=== PATIENT | male | born 1980 | race Caucasian/White ===

== ENCOUNTER 2024-10-12 09:58 | Emergency (ER) | payer BC, SELFPAY ==
[2024-10-12 10:04] VITALS: BP 160/85; PULSE 93; RESP 16; TEMP 36.4; O2SAT 99
[2024-10-12 10:11] VITALS: BP 160/85; PULSE 93; RESP 16; TEMP 36.4; O2SAT 99
--- NOTE | 2024-10-12 10:19 | ED_ITS ---
HPI - URI/Sore Throat General Chief Complaint: Upper Respiratory Infection Stated Complaint: congestion/flu symptoms History of Present Illness HPI Narrative: Patient is a 44-year-old male, tobacco dependent, presents to [facility] with 3 day history of URI symptoms, nasal congestion and a barky cough. He states his cough is nonproductive and feels similar to previous pneumonia he had a couple of years ago. He denies known sick contacts, he has not had a fever. He is taking [id number] Mucinex and NyQuil with some symptom relief. He denies any additional associated symptoms, including chest pain or shortness of breath. No other modifying factors are endorsed. Related Data Allergies Allergy/AdvReac Type Severity Reaction Status Date / Time No Known Allergies Allergy Verified 10/12/24 10:08 Review of Systems ENT: Comments: Refer to HPI Exam Const: General: healthy appearing and no acute distress Nutritional Appearance: well nourished Orientation/consciousness: patient oriented x3 Limitations: no limitations HENMT: Head: normal to inspection Ears: external ears normal Face and sinus: normal facial exam Teeth and gingiva: dentition normal Other: patient is a serous pattern bilaterally, no erythema noted Eyes: Conjunctivae: conjunctivae normal Neck: Neck: normal visual inspection, no lymphadenopathy and no meningeal signs Resp: Effort & Inspection: normal respiratory effort Auscultation: wheezes ( diffuse end inspiratory and expiatory wheezing noted, no rales or rhonchi) Cardio: Rate: regular rate Rhythm: regular rhythm Skin: General skin exam: normal color Rashes: no rashes Wounds: no wounds Neuro: General: patient oriented x3, moves all extremities, no meningeal signs, no focal motor deficits and CN's II-XI intact bilaterally Cranial nerves: Yes Nystagmus not present Speech: normal speech Gait exam (Neuro): Normal gait present Extrem: General: normal to inspection Course Course Emergency Course: patient exam findings and history of presenting illness are concerning for viral URI however patient does also have concern for community-acquired pneumonia and given CDC recommendation to empirically treat if patients are symptomatic with current epidemic, will treat with Zithromax as well. Steroid course and cough suppressants make be continued at home, inhaler for rescue for wheezing. Tobacco cessation is encouraged. Patient verbalized understanding. ER if symptoms worsen. Patient is agreeable plan Level of Care: [facility] Visit ([id number]) Vital Signs Vital signs: Vital Signs Temperature 36.4 C L 10/12/24 10:04 Pulse Rate 93 10/12/24 10:04 Respiratory Rate 16 10/12/24 10:04 Blood Pressure 160/85 H 10/12/24 10:04 Pulse Oximetry 99 10/12/24 10:04 Oxygen Delivery Room Air 10/12/24 10:04 Temperature 36.4 C L 10/12/24 10:11 Pulse Rate 93 10/12/24 10:11 Respiratory Rate 16 10/12/24 10:11 Blood Pressure 160/85 H 10/12/24 10:11 Pulse Oximetry 99 10/12/24 10:11 Oxygen Delivery Room Air 10/12/24 10:11 MDM - URI/Sore Throat MDM Narrative Medical decision making narrative: Zithromax, prednisone, albuterol Differential Diagnosis Differential diagnosis: Likely upper respiratory infection, viral infection, bronchitis and pharyngitis Discharge Plan Discharge Clinical Impression: Bronchitis Patient Disposition: Home, Self-Care Condition: Stable Instructions: Antibiotic Form, Community Acquired Pneumonia (DC) Additional Instructions: START AND COMPLETE ANTIBIOTICS AND STEROIDS PRESCRIBED. USE COUGH SUPPRESSANTS DIRECTED [id number], INHALER FOR RESCUE FOR WHEEZING. WORK ON TOBACCO CESSATION. SEE YOUR PRIMARY DOCTOR IF YOUR SYMPTOMS ARE NOT IMPROVING IN 3 DAYS. ER IF YOUR CONDITION WORSENS IN ANY WAY. Prescriptions: New prednisone 20 mg tablet 40 mg PO DAILY 5 Days Qty: 10 0RF albuterol sulfate 90 mcg/actuation HFA aerosol inhaler 1 inh inhalation QID PRN (Reason: shortness of breath or wheezing) Qty: 8.5 0RF azithromycin [Zithromax] 500 mg tablet 500 mg PO DAILY 5 Days Qty: 5 0RF Follow-up/Referrals: PHYSICIAN,ELECTRONIC INTEGRATED SYSTEMS MECHANIC [Primary Care Provider] - Stand Alone Forms: Work/School Release IP Time of Disposition: 10:26
== END 2024-10-12 10:31 | disposition home or self-care (01) ==
PROVIDERS: Emergency Provider Nurse Practitioner Family
DX: J40 Bronchitis, not specified as acute or chronic (principal)
CPT/HCPCS: 99203; G0463

== ENCOUNTER 2025-03-24 12:25 | Emergency (ER) | payer BC, SELFPAY ==
[2025-03-24 12:29] VITALS: BP 170/93; PULSE 109; RESP 16; TEMP 36.1; O2SAT 98
--- NOTE | 2025-03-24 13:06 | ED.URI ---
HPI - URI/Sore Throat General Chief Complaint: Upper Respiratory Infection Stated Complaint: sore throat Time Seen by Provider: 03/24/25 12:55 Source: patient, RN notes reviewed and old records reviewed Mode of arrival: ambulatory Limitations: no limitations History of Present Illness HPI Narrative: Patient reports that he has sore throat since yesterday and has noted some cough and some wheezing also. Patient reports that he does have history of asthma and has used his inhaler yesterday and has been taking some Ibuprofen and also Tylenol. Patient reports that he does have a history of asthma and continues to use tobacco daily. Patient reports that he has used his inhaler and he has noted that he has some wheezing, denies any acute dyspnea or any known temperature. MD elicited complaint: sore throat and other (cough) Pertinent past history: asthma Onset (ago): day(s) (2 days) Severity: moderate Description of mucous: clear Able to tolerate fluids by mouth: Yes Treatments prior to arrival: acetaminophen, ibuprofen and other (inhaler) Related Data Allergies Allergy/AdvReac Type Severity Reaction Status Date / Time No Known Allergies Allergy Verified 03/24/25 12:36 Review of Systems Review of Systems: CONSTITUTIONAL: reports malaise,no chills, sweats, or fever. EYES: Denies visual changes, redness, or discharge. ENT: Reports rhinorrhea, congestion, sinus pain, otalgia and positive for sore throat. CARDIOVASCULAR: Denies chest pain, palpitations, or edema. RESPIRATORY: Reports cough and wheezing? Denies dyspnea. GASTROINTESTINAL: Denies abdominal pain, nausea, vomiting, diarrhea SKIN: Denies rash or itching. MUSCULOSKELETAL: Denies myalgia. NEUROLOGIC: Denies headache. All systems reviewed & are unremarkable except as noted in HPI and below [facility] Past Medical History Medical History (Updated 03/24/25 @ 13:40 by Jena Box NP) Bronchitis Asthma Social History Social History (Updated 03/24/25 @ 13:42 by Jena Box NP) Smoking packs per day: 0.5 Smoking cigarettes per day: 10.0 Smoking status: Current every day smoker Tobacco type: cigarettes Alcohol intake: current Alcohol use details: social Substance use type: does not use Living arrangements: with family Gender identity (if verbalized by the patient): Male Comments At time of signature, agree with nursing past medical, surgical, social and family history. There is no relevant family history pertinent to the presenting complaint Exam Narrative: GENERAL: Well-appearing, well-nourished, and in no acute distress. HEAD: Normocephalic EYES: PERRLA, conjunctivae clear ENT: Nares clear, turbinates edematous and erythematous, clear discharge. Mucous membranes moist. TM pearly quick with dull light reflex bilaterally; no tragal tenderness. Oropharynx erythematous without lesions. Tonsils red enlarged and with white exudate left tonsil, no drooling, no hoarseness, no trismus, uvula midline, post nasal drainage NECK: Supple. No lymphadenopathy CHEST: Scattered wheezing on auscultation, breath sounds equal. + wheezing,no rhonchi, rales, or stridor. No respiratory distress, speaks in full sentences.SAO2 98% on room air HEART: Regular rate and rhythm. No murmur heard. SKIN: Warm, dry, no rash. NEURO: Alert and oriented x3. PSYCH: Normal mood and affect Course Course Emergency Course: Patient is aware of diagnosis, understands and agrees to treatment plan.? Anticipatory guidance given.? Patient agrees to follow-up as directed and is aware of reasons to seek care at the emergency department. Portions of this record may have been created with voice recognition software Level of Care: Express Care Visit Vital Signs Vital signs: Vital Signs Temperature 36.1 C L 03/24/25 12:29 Pulse Rate 109 H 03/24/25 12:29 Respiratory Rate 16 03/24/25 12:29 Blood Pressure 170/93 H 03/24/25 12:29 Pulse Oximetry 98 03/24/25 12:29 Oxygen Delivery Room Air 03/24/25 12:29 Temperature 36.1 C L 03/24/25 12:29 Pulse Rate 109 H 03/24/25 12:29 Respiratory Rate 16 03/24/25 12:29 Blood Pressure 170/93 H 03/24/25 12:29 Pulse Oximetry 98 03/24/25 12:29 Oxygen Delivery Room Air 03/24/25 12:29 Reviewed MDM - URI/Sore Throat MDM Narrative Medical decision making narrative: Differential diagnosis considered: Pool virus, strep pharyngitis, allergic rhinitis, upper respiratory tract infection, sinusitis, rhinosinusitis, nasopharyngitis. viral pharyngitis, otitis media, otitis externa, pneumonia, bronchitis, viral cough syndrome, viral syndrome, and influenza.? Exam findings show no acute concerns or changes; patient is non-toxic appearing and is in no distress.? Patient is appropriate for outpatient treatment and follow-up. Differential Diagnosis Differential diagnosis: Likely upper respiratory infection, bronchitis, pharyngitis and other (strep pharyngitis) Medical Records Attestation: I reviewed the patient's medical records. Lab Data Attestation: I reviewed the patient's lab results. Lab results narrative: strep screen negative, culture sent Critical Care Time Critical Care Time Critical Care Time: No Discharge Plan Discharge Clinical Impression: Bronchitis Pharyngitis Qualifiers: Pharyngitis/tonsillitis etiology: unspecified etiology Qualified Code(s): J02.9 - Acute pharyngitis, unspecified Patient Disposition: Home Condition: Stable Instructions: Antibiotic Form, Acute Bronchitis (ED) Additional Instructions: Increase fluids especially juices and water [id number]-[id number] cough and cold medicine of your choice for your symptoms Tylenol or ibuprofen for any fever pain Continue your inhaler/nebulizer as directed Steroids as directed--take with food heat to the face 20-30 minutes 4-6 times a day for pain Salt water gargles, throat lozenges or throat sprays as desired Antibiotic as directed--finished the medication Mucinex for any congestion or drainage Monitor your temperature Stop smoking Patient Language: Guamanian Prescriptions: New azithromycin 500 mg tablet 500 mg PO DAILY 5 Days Qty: 5 0RF albuterol sulfate [Ventolin HFA] 90 mcg/actuation HFA aerosol inhaler 2 puff inhalation QID PRN (Reason: shortness of breath or wheezing) Qty: 8.5 0RF prednisone 20 mg tablet 40 mg PO DAILY Qty: 10 0RF Follow-up/Referrals: PHYSICIAN,ASSESSMENT COORDINATOR [Primary Care Provider] - Stand Alone Forms: Work/School Release IP Time of Disposition: 13:16 Quality Jordan Coma Scale Eyes: Open Verbal: Oriented and Alert Motor: Follows Commands Tiago Coma Total Score: 15
[2025-03-24 13:19] LABS: EDSTREPNEGPOS1 Negative (Negative)
--- OUTSIDE RECORDS SUMMARY | 2025-03-25 13:09 | XMS_ITS | Referral Summary ---
Author Organization [address] Address [address] [place] [id number] Care Team Providers Care Software Project Manager Name Role Phone No, Physician Primary Care Provider [phone] Allergies No known active allergies Medications albuterol HFA (ProAir HFA) 90 mcg/actuation inhalerIndicati ons:Shortness of breath Inhale 2 puffs every 4 (four) hours as needed for shortness of breath 1 each 4 Active methylPREDNISol one (Medrol, Bryant,) 4 mg DosepackIndicat ions:Viral URI with cough,Shortness of breath follow package directions 21 tablet 4 Active albuterol 2.5 mg /3 mL (0.083 %) nebulizer solution Take 3 mL (2.5 mg total) by nebulization every 6 (six) hours as needed for wheezing 75 mL 4 10/19/20 25 Active benzonatate (TESSALON) 100 mg capsuleIndicati ons:Cough Take 1 capsule (100 mg total) by mouth every 8 (eight) hours 21 capsule 4 Active fluticasone propionate (FLOVENT HFA) 44 mcg/actuation inhaler Inhale 1 puff 2 (two) times a day Rinse mouth with water after use. Do not swallow. 1 each 4 Active Active Problems No known active problems Social History Tobacco Use Types Packs/Day Years Used Date Smoking Tobacco: Never Assessed Personal Safety Answer Date Recorded Have you ever been in or are you currently in a harmful physical or emotional relationship or is someone making you feel afraid or unsafe? 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 INSTALLER Gender Identity Not on file Sexual Orientation Not on file Last Filed Vital Signs Vital Sign Reading Time Taken Comments Blood Pressure 151/84 10/19/2024 6:15 PM DOOR INSTALLER Pulse 94 10/19/2024 6:15 PM DOOR INSTALLER Temperature 36.3 C (97.3 F) 10/19/2024 6:15 PM DOOR INSTALLER Respiratory Rate 16 10/19/2024 6:15 PM DOOR INSTALLER Oxygen Saturation 97% 10/19/2024 6:15 PM DOOR INSTALLER Inhaled Oxygen Concentration - - Weight 129.7 kg (286 lb) 10/19/2024 6:15 PM DOOR INSTALLER Height 180.3 cm (5' 11 ) 10/19/2024 6:15 PM DOOR INSTALLER Body Mass Index 39.89 10/19/2024 6:15 PM DOOR INSTALLER Plan of Treatment Not on file Insurance [facility] Care Teams Software Project Manager Relationship Specialty Start Date End Date No, Physician PCP - General 01/18/24
--- OUTSIDE RECORDS SUMMARY | 2025-03-25 13:09 | XMS_ITS | Clinical Summary ---
Author Organization [address] Address [address] [place] [id number] Care Team Providers Care Medical Social Worker Name Role Phone No, Physician Primary Care Provider [phone] Allergies No known active allergies Medications albuterol [...] Active Active Problems No known active problems Family History Medical History Relation Name Comments Hypertension Other Family history of Hypertension; Relation Name Status Comments Other Social History Tobacco Use Types Packs/Day Years Used Date Smoking Tobacco: Never Assessed Personal Safety Answer Date Recorded Have you ever been in or are you currently in a harmful physical or emotional relationship or is someone making you feel afraid or unsafe? Denies 10/19/2024 Sex and Gender Information Value Date Recorded Sex Assigned at Not on file Legal Sex Male 4:22 AM BOAT HAND Gender Identity Not on file Sexual Orientation Not on file Obstetrics History Last Filed Vital Signs Vital Sign Reading Time Taken Comments Blood Pressure 151/84 10/19/2024 6:15 PM BOAT HAND Pulse 94 10/19/2024 6:15 PM BOAT HAND Temperature 36.3 C (97.3 F) 10/19/2024 6:15 PM BOAT HAND Respiratory Rate 16 10/19/2024 6:15 PM BOAT HAND Oxygen Saturation 97% 10/19/2024 6:15 PM BOAT HAND Inhaled Oxygen Concentration - - Weight 129.7 kg (286 lb) 10/19/2024 6:15 PM BOAT HAND Height 180.3 cm (5' 11 ) 10/19/2024 6:15 PM BOAT HAND Body Mass Index 39.89 10/19/2024 6:15 PM BOAT HAND Plan of Treatment Health Maintenance Due Date Last Done Comments Colon Cancer Screening-Colonoscopy 1980 Depression Screening 1980 Hepatitis C Screening 1980 DTaP/Tdap/Td Vaccine (1 - Tdap) 02/19/1991 Varicella Vaccines (1 of 2 - 13+ 2-dose series) 02/19/1993 Hepatitis B Screening 02/19/1998 Regular Well Visit/Exam 18-64 02/19/1998 Influenza Vaccine (Season Ended) 2025 HPV Vaccines Aged Out No longer eligi ble based on patient's age to complete this topic Pneumococcal vaccine <65 Aged Out No longer eligible based on patient's age to complete this topic Insurance [facility] Care Teams Medical Social Worker Relationship Specialty Start Date End Date No, Physician PCP - General 01/18/24
== END 2025-03-24 13:25 | disposition home or self-care (01) ==
PROVIDERS: Emergency Provider Registered Nurse
DX: J40 Bronchitis, not specified as acute or chronic (principal); J02.9 Acute pharyngitis, unspecified; F17.210 Nicotine dependence, cigarettes, uncomplicated; J45.909 Unspecified asthma, uncomplicated
CPT/HCPCS: 87081; 87880; 99213; G0463

== ENCOUNTER 2025-06-24 14:17 | Emergency (ER) | payer BC, SELFPAY ==
--- OUTSIDE RECORDS SUMMARY | 2025-06-24 14:19 | XMS_ITS | Referral Summary ---
Author Organization [address] Address [address] [place] [id number] Care Team Providers Care Respiratory Physician Name Role Phone No, Physician Primary Care Provider [phone] Allergies No known active allergies Medications albuterol [...] on file Legal Sex Male 4:22 AM HEEL COVERER Gender Identity Not on file Sexual Orientation Not on file Last Filed Vital Signs Vital Sign Reading Time Taken Comments Blood Pressure 151/84 10/19/2024 6:15 PM HEEL COVERER Pulse 94 10/19/2024 6:15 PM HEEL COVERER Temperature 36.3 C (97.3 F) 10/19/2024 6:15 PM HEEL COVERER Respiratory Rate 16 10/19/2024 6:15 PM HEEL COVERER Oxygen Saturation 97% 10/19/2024 6:15 PM HEEL COVERER Inhaled Oxygen Concentration - - Weight 129.7 kg (286 lb) 10/19/2024 6:15 PM HEEL COVERER Height 180.3 cm (5' 11) 10/19/2024 6:15 PM HEEL COVERER Body Mass Index 39.89 10/19/2024 6:15 PM HEEL COVERER Plan of Treatment Not on file Insurance [employer] [facility] Care Teams Respiratory Physician Relationship Specialty Start Date End Date No, Physician PCP - General 01/18/24
--- OUTSIDE RECORDS SUMMARY | 2025-06-24 14:19 | XMS_ITS | Clinical Summary ---
Author Organization [address] Address [address] [place] [phone] Care Team Providers Care Medical Assembler Name Role Phone No, Physician Primary Care Provider [phone] Allergies No known active allergies Medications albuterol [...] on file Legal Sex Male 4:22 AM MASS SPECTROMETRY SPECIALIST Gender Identity Not on file Sexual Orientation Not on file Obstetrics History Last Filed Vital Signs Vital Sign Reading Time Taken Comments Blood Pressure 151/84 10/19/2024 6:15 PM MASS SPECTROMETRY SPECIALIST Pulse 94 10/19/2024 6:15 PM MASS SPECTROMETRY SPECIALIST Temperature 36.3 C (97.3 F) 10/19/2024 6:15 PM MASS SPECTROMETRY SPECIALIST Respiratory Rate 16 10/19/2024 6:15 PM MASS SPECTROMETRY SPECIALIST Oxygen Saturation 97% 10/19/2024 6:15 PM MASS SPECTROMETRY SPECIALIST Inhaled Oxygen Concentration - - Weight 129.7 kg (286 lb) 10/19/2024 6:15 PM MASS SPECTROMETRY SPECIALIST Height 180.3 cm (5' 11) 10/19/2024 6:15 PM MASS SPECTROMETRY SPECIALIST Body Mass Index 39.89 10/19/2024 6:15 PM MASS SPECTROMETRY SPECIALIST Plan of Treatment Health Maintenance Due Date Last Done Comments Colon Cancer Screening-Colonoscopy 1980 Depression Screening 1980 Hepatitis C Screening 1980 DTaP/Tdap/Td Vaccine (1 - Tdap) 02/19/1991 Varicella Vaccines (1 of 2 - 13+ 2-dose series) 02/19/1993 Hepatitis B Screening 02/19/1998 Regular Well Visit/Exam 18-64 02/19/1998 HPV Vaccines (1 - 3-dose SCD M series) 02/19/2007 Influenza Vaccine (#1) 2025 Pneumococcal vaccine <65 Aged Out No longer eligible based on patient's age to complete this topic Insurance [facility] Care Teams Medical Assembler Relationship Specialty Start Date End Date No, Physician PCP - General 01/18/24
[2025-06-24 14:28] VITALS: BP 158/78; PULSE 96; RESP 18; TEMP 37.1; O2SAT 98
--- NOTE | 2025-06-24 15:53 | ED.GENADULT ---
HPI - General Adult General Chief complaint: Skin/Abscess/Foreign Body Stated complaint: Skin Sore Right Leg Source: patient Mode of arrival: ambulatory Limitations: no limitations History of Present Illness HPI narrative: Pt presents for evaluation of redness and swelling to the right lower leg. He sustained a puncture wound at work 3 days ago. He thinks the puncture wound was from a piece of equipment. Over the last day he has noted increased swelling and redness to the anterior aspect of the leg. He denies pain per se. He denies any calf pain. No fevers, chills, nausea, vomiting, drainage from the affected area. He is not diabetic. He smokes approximately half a pack per day. He has been cleaning the area with antibacterial soap and applying antibiotic ointment. He is UTD on tetanus. Related Data Allergies Allergy/AdvReac Type Severity Reaction Status Date / Time No Known Allergies Allergy Verified 03/24/25 12:36 Review of Systems Review of Systems: CONSTITUTIONAL: Denies fever, chills, or sweats. EYES: Denies visual changes, redness, or discharge. ENT: Denies rhinorrhea, congestion, sore throat, or otalgia. CARDIOVASCULAR: Denies chest pain, palpitations RESPIRATORY: Denies cough or dyspnea. GASTROINTESTINAL: Denies abdominal pain, nausea, vomiting, or diarrhea. GENITOURINARY: Denies dysuria or hematuria. SKIN: Reports puncture wound to anterior aspect of the right lower leg with surrounding redness MUSCULOSKELETAL: Reports swelling to anterior aspect of right lower leg. Denies back pain, joint pain, or myalgia. NEUROLOGIC: Denies headache, numbness, dizziness, or weakness. PSYCHIATRIC: Denies anxiety or depression. [facility] Past Medical History Medical History Bronchitis Asthma Surgical History Surgical History No pertinent past surgical history Family History Family History Mother Family history non-contributory Social History Social History Smoking packs per day: 0.5 Smoking cigarettes per day: 10.0 Smoking status: Current every day smoker Tobacco type: cigarettes Alcohol intake: current Alcohol use details: social Substance use type: does not use Living arrangements: with family Gender identity (if verbalized by the patient): Male Exam Narrative: GENERAL: Well-appearing, well-nourished, and in no acute distress. HEAD: Normocephalic, atraumatic. EYES: PERRLA and EOMI. ENT: Nares clear, no rhinorrhea or epistaxis. Mucous membranes moist. Oropharynx without tonsillar hypertrophy exudate or other lesions. Bilateral TMs pearly quick nonbulging NECK: Supple. No adenopathy or masses. No carotid bruits or JVD CHEST: Clear to auscultation. No respiratory distress. No wheezes rales or rhonchi HEART: Regular rate and rhythm. No murmur heard. Normal peripheral pulses. ABDOMEN: Soft, nontender, nondistended, normal active bowel sounds. EXTREMITIES: Normal range of motion. No edema. SKIN: There is a puncture wound to the anterior aspect of the right lower leg with [id number] area of surrounding redness. There is dried serosanguinous drainage at the site of the puncture miguelito. NEURO: No focal deficits. Alert and oriented x3. PSYCH: Normal mood and affect. Course Course Emergency Course: This is a 45-year-old male who presented for evaluation of a puncture wound to the right lower leg. He has apparent cellulitis. Discharge with cephalexin and Bactrim. Up-to-date on tetanus. Follow up with primary provider. Go to the ER for worsening symptoms. Pt in agreement with plan of care. Level of Care: Express Care Visit Vital Signs Vital signs: Vital Signs Temperature 37.1 C 06/24/25 14:28 Pulse Rate 96 06/24/25 14:28 Respiratory Rate 18 06/24/25 14:28 Blood Pressure 158/78 H 06/24/25 14:28 Pulse Oximetry 98 06/24/25 14:28 Oxygen Delivery Room Air 06/24/25 14:28 Temperature 37.1 C 06/24/25 14:28 Pulse Rate 96 06/24/25 14:28 Respiratory Rate 18 06/24/25 14:28 Blood Pressure 158/78 H 06/24/25 14:28 Pulse Oximetry 98 06/24/25 14:28 Oxygen Delivery Room Air 06/24/25 14:28 Medical Decision Making Vital Signs Vital Signs: Vital Signs Temperature 37.1 C 06/24/25 14:28 Pulse Rate 96 06/24/25 14:28 Respiratory Rate 18 06/24/25 14:28 Blood Pressure 158/78 H 06/24/25 14:28 Pulse Oximetry 98 06/24/25 14:28 Oxygen Delivery Room Air 06/24/25 14:28 Temperature 37.1 C 06/24/25 14:28 Pulse Rate 96 06/24/25 14:28 Respiratory Rate 18 06/24/25 14:28 Blood Pressure 158/78 H 06/24/25 14:28 Pulse Oximetry 98 06/24/25 14:28 Oxygen Delivery Room Air 06/24/25 14:28 Discharge Plan Discharge Clinical Impression: Cellulitis of leg, right Patient Disposition: Home Condition: Stable Instructions: Antibiotic Form, Cellulitis (ED) Patient Language: Sammarinese Prescriptions: New sulfamethoxazole-trimethoprim [Bactrim DS] 800-160 mg tablet 1 tablet PO Q12H Qty: 20 0RF cephalexin 500 mg capsule 500 mg PO Q6H Qty: 40 0RF No Action prednisone 20 mg tablet 40 mg PO DAILY Qty: 10 0RF Follow-up/Referrals: Morelia Kay MD [Physician] - Time of Disposition: 14:53
== END 2025-06-24 14:58 | disposition home or self-care (01) ==
PROVIDERS: Emergency Provider Nurse Practitioner
DX: L03.115 Cellulitis of right lower limb (principal); J45.909 Unspecified asthma, uncomplicated; F17.210 Nicotine dependence, cigarettes, uncomplicated
CPT/HCPCS: 99213; G0463

== ENCOUNTER 2025-07-27 16:15 | Emergency (ER) | payer BC, SELFPAY ==
--- OUTSIDE RECORDS SUMMARY | 2025-07-27 16:17 | XMS_ITS | Clinical Summary ---
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 Gender Identity Not on file Sexual Orientation Not on file Obstetrics History Last Filed Vital Signs Vital Sign Reading Time Taken Comments Blood Pressure 151/84 10/19/2024 6:15 PM FIELD ASSESSOR Pulse 94 10/19/2024 6:15 PM FIELD ASSESSOR Temperature 36.3 C (97.3 F) 10/19/2024 6:15 PM FIELD ASSESSOR Respiratory Rate 16 10/19/2024 6:15 PM FIELD ASSESSOR Oxygen Saturation 97% 10/19/2024 6:15 PM FIELD ASSESSOR Inhaled Oxygen Concentration - - Weight 129.7 kg (286 lb) 10/19/2024 6:15 PM FIELD ASSESSOR Height 180.3 cm (5' 11) 10/19/2024 6:15 PM FIELD ASSESSOR Body Mass Index 39.89 10/19/2024 6:15 PM FIELD ASSESSOR Plan of Treatment Health Maintenance Due Date [...] patient's age to complete this topic Insurance [facility] Care Teams Electric Knife Operator Relationship Specialty Start Date End Date No, Physician PCP - General 01/18/24
[2025-07-27 16:25] VITALS: BP 138/78; PULSE 92; RESP 18; TEMP 36.6; O2SAT 97
--- NOTE | 2025-07-27 17:02 | ED.URI ---
HPI - URI/Sore Throat General Chief Complaint: Upper Respiratory Infection Stated Complaint: Chest Congestion/Shortness of Breath/Nasal Congest Time Seen by Provider: 07/27/25 17:03 Source: patient, RN notes reviewed and old records reviewed Mode of arrival: ambulatory Limitations: no limitations History of Present Illness HPI Narrative: 45-year-old male presents to the [facility] with 4 day history of chest congestion, cough, drainage. States that on Thursday he felt feverish and had a cough. Has a history of asthma. No primary. Reports taking Mucinex, ibuprofen and Tylenol. Symptoms have greatly improved. Does not have an inhaler at home Related Data Home Medications ?Medication ?Instructions ?Recorded ?Confirmed ?Last Taken ?Type losartan 25 mg tablet mg 07/27/25 Unknown History Allergies Allergy/AdvReac Type Severity Reaction Status Date / Time No Known Allergies Allergy Verified 07/27/25 16:17 Review of Systems Review of Systems: All systems reviewed & are unremarkable except as noted in HPI and below Constitutional: Constitutional: Reports no additional constitutional complaints ENT: Reports as per HPI Cardiovascular: Cardiovascular: Reports no additional cardiovascular complaints, Denies chest pain and Denies dyspnea Respiratory: Respiratory: Reports as per HPI, Reports chest congestion, Reports cough and Denies dyspnea Musculoskeletal: Musculoskeletal: Reports no additional musculoskeletal complaints Integumentary/Breasts: Skin/Breast: Reports system reviewed and no additional complaints, except as docu PMFSH Past Medical History Medical History Bronchitis Asthma Surgical History Surgical History No pertinent past surgical history Family History Family History Mother Family history non-contributory Social History Social History Smoking packs per day: 0.5 Smoking cigarettes per day: 10.0 Smoking status: Current every day smoker Tobacco type: cigarettes Alcohol intake: current Alcohol use details: social Substance use type: does not use Living arrangements: with family Gender identity (if verbalized by the patient): Male Comments At the time of my signature, I reviewed and agree with the nursing past medical, surgical, social, and family history. There is no relevant family history pertinent to the patient complaint. Exam Const: General: cooperative, healthy appearing, comfortable, no acute distress, well developed, alert and well nourished Nutritional Appearance: well nourished and obese Orientation/consciousness: patient oriented x3 Limitations: no limitations HENMT: Head: normal to inspection Ears: hearing grossly normal bilaterally, external ears normal, TM's normal bilaterally, EAC's normal, mastoids normal and no periauricular adenopathy Mouth: Yes Normal oral and palatal mucosa present, Yes lip normal, Yes tongue normal and Yes moist mucous membranes Throat: posterior oropharynx normal, uvula midline and no uvular edema Eyes: General: appearance normal, both eyes and all related structures Alignment and Position: alignment normal Neck: Neck: normal visual inspection, full ROM, no lymphadenopathy and no meningeal signs Chest: Chest palpation & inspection: normal inspection of the chest Resp: Effort & Inspection: normal respiratory effort and able to speak in complete sentences Auscultation: clear to auscultation bilaterally, no crackles, no rales, no rhonchi and no wheezes Cardio: Rate: regular rate Skin: General skin exam: normal color and no rashes or lesions noted Neuro: General: patient oriented x3, gait normal, moves all extremities and no meningeal signs Cognition (Neuro): normal cognition Speech: normal speech Gait exam (Neuro): Normal gait present Extrem: General: normal to inspection, full ROM, capillary refill normal and normal gait Psych: Appearance: grossly normal and well kempt Mental Status: mental status grossly normal Speech and movement: Normal speech and movement present and Clear speech present Affect: normal affect Attitude: cooperative Course Course Level of Care: Express Care Visit Vital Signs Vital signs: Vital Signs Temperature 97.9 F 07/27/25 16:25 Pulse Rate 92 07/27/25 16:25 Respiratory Rate 18 07/27/25 16:25 Blood Pressure 138/78 07/27/25 16:25 Pulse Oximetry 97 07/27/25 16:25 Temperature 97.9 F 07/27/25 16:25 Pulse Rate 92 07/27/25 16:25 Respiratory Rate 18 07/27/25 16:25 Blood Pressure 138/78 07/27/25 16:25 Pulse Oximetry 97 07/27/25 16:25 Reviewed MDM - URI/Sore Throat MDM Narrative Medical decision making narrative: Patient sitting in exam room. Patient is nontoxic, vitals stable. Patient presents with chest congestion nasal congestion. Fever and cough have improved. Symptoms x4 days. Patient reports that he is out of his nebulizer, albuterol. Patient's exam with no acute findings Patient requesting refills of medication Patient appropriate for outpatient treatment and close follow-up Discharge instructions reviewed with patient, as well as provided in writing per nursing staff. The instructions also include specific and strict return/GO TO THE ER as well as f/u information. All questions have been answered, and the patient deny any further questions with discharge and discharge plan. Some parts of this dictation were generated by voice recognition software and may contain typographical and/or grammatical inaccuracies. Differential Diagnosis Differential diagnosis: Likely upper respiratory infection, otitis media, sinusitis, viral infection and bronchitis Critical Care Time Critical Care Time Critical Care Time: No Discharge Plan Discharge Clinical Impression: Bronchitis, Upper respiratory infection Patient Disposition: Home Condition: Stable Instructions: Antibiotic Form, Upper Respiratory Infection (DC), Acute Bronchitis (ED) Additional Instructions: Your symptoms are likely due to a viral illness, which is not treated with antibiotics. Typically viral infections last 7-10 days, can linger for couple of weeks. It is very important to treat your symptoms. Drink plenty of water, Gatorade, Pedialyte, ice pops or Jell-O. -Alternate Tylenol and Motrin per package directions for fever or pain. You can alternate every 4 hours -Antihistamine medication such as Zyrtec/Claritin/Zahida during the day can help improve symptoms. -doing daily nasal irrigations can help relieve pressure your sinuses. Things like a Neti pot -Use Flonase twice a day for 5 days then daily to help reduce the inflammation and dry up your sinuses. -You can also use Mucinex. Be sure to drink plenty of water with this medication at least 8 ounces with every dose and it is important to drink 8 to 10 glasses of water per day. Water is a natural decongestant -Eat and drink things that are easy to swallow, like tea or soup, or popsicles. -Oral rinses such as: Salt water gargles and/or may use topical anesthetic (eg. Chloraseptic spray) or lozenges to relieve dryness or throat pain). -Frequent hand washing or hand early head start director is one of the best ways to prevent spread of infection. -Using a vaporizer or humidifier at night will also help thin secretions and help with coughing up phlegm. -Follow up with primary care provider in 7-10 days if condition is not improving - For new or worsening symptoms go directly to the nearest ER Patient Language: Japanese Prescriptions: New albuterol sulfate 0.63 mg/3 mL solution for nebulization 0.63 mg inhalation Q6H Qty: 75 0RF albuterol sulfate 90 mcg/actuation HFA aerosol inhaler 2 puff inhalation QID PRN (Reason: shortness of breath or wheezing) Qty: 6.7 0RF (DME) Aerochamber MV Spacer See Rx Instructions .Route Qty: 1 0RF Rx Instructions: As directed prednisone 20 mg tablet 40 mg PO DAILY Qty: 10 0RF No Action losartan 25 mg tablet Follow-up/Referrals: Josephine Stephens DO [Physician, Family Practice] PHYSICIAN,BUILDINGS AND GROUNDS COORDINATOR [Primary Care Provider, Internal Medicine] Stand Alone Forms: Work/School Release IP Time of Disposition: 17:09
== END 2025-07-27 17:16 | disposition home or self-care (01) ==
PROVIDERS: Emergency Provider Nurse Practitioner
DX: J40 Bronchitis, not specified as acute or chronic (principal); J06.9 Acute upper respiratory infection, unspecified; F17.210 Nicotine dependence, cigarettes, uncomplicated
CPT/HCPCS: 99213; G0463